=== PATIENT | female | born 1970 | race Caucasian/White ===

== ENCOUNTER 2022-10-22 09:56 | Outpatient (CLI) | payer OTHER | END 2022-10-22 09:57 | disposition home or self-care (01) | LOC: CSHRAD 09:56 | PROVIDERS: ATTEND Family Medicine | DX: M25.522 Pain in left elbow (principal) ==

== ENCOUNTER 2023-11-25 11:09 | Day surgery (SDC) | payer OTHER ==
[2023-11-24 12:43] VITALS: BMI 45.8
[2023-11-25] MEDS ORDERED: Bupivacaine PF 0.5% 30 ML VIAL ONE (13:48)
[2023-11-25] MEDS ORDERED: CEFAZOLIN 2 GM VIAL ONE (13:48)
[2023-11-25] MEDS ORDERED: PROPOFOL 40 ML ONE (13:57)
[2023-11-25] MEDS ORDERED: fentaNYL 50 mcg/mL 1 mL Vial ONE ×2 (13:57→17:24)
[2023-11-25] MEDS ORDERED: Lidocaine 1% PF 5 ML VIAL ONE (13:58)
[2023-11-25] MEDS ORDERED: ePHEDrine Sulfate 50 MG/10 ML VIAL ONE ×2 (14:49→15:10)
[2023-11-25] MEDS ORDERED: Ropivacaine 0.2% 550 ML 550 ML NERVE BLCK SCH (15:00)
[2023-11-25] MEDS ORDERED: Promethazine HCl 25 MG/ML VIAL IM PRN (15:30)
[2023-11-25] MEDS ORDERED: Ondansetron PF 4 MG/2 ML Vial IVP PRN (15:30)
[2023-11-25] MEDS ORDERED: HYDROcodone/Acetaminophen 5/325 mg Tablet ONE (18:17)
== END 2023-11-25 19:00 | disposition home or self-care (01) ==
LOC: CSHSDC 11:09
PROVIDERS: ATTEND Podiatrist Foot & Ankle Surgery
DX: M20.31 Hallux varus (acquired), right foot (principal); M20.41 Other hammer toe(s) (acquired), right foot; S95.1 Injury of plantar artery of foot; M19.90 Unspecified osteoarthritis, unspecified site; R73.03 Prediabetes; F41.8 Other specified anxiety disorders; Z98.49 Cataract extraction status, unspecified eye; Z90.710 Acquired absence of both cervix and uterus; Z98.51 Tubal ligation status; Z98.890 Other specified postprocedural states; Z96.652 Presence of left artificial knee joint; Z79.899 Other long term (current) drug therapy; F17.210 Nicotine dependence, cigarettes, uncomplicated; Z88.8 Allergy status to other drugs, medicaments and biological substances; X58.XXXA Exposure to other specified factors, initial encounter
CPT/HCPCS: A4306; C1713; J0665; J2704; J2795; J3010